=== PATIENT | male | born 1965 | race Caucasian/White ===

== ENCOUNTER 2016-08-29 01:06 | Emergency (ER) | payer BC ==
--- NOTE | ~2016-08-29 | ER ---
[facility] 51 [facility] [address] ROOM: [place] [address] LOCATION: [facility] ADMIT DATE: 08/29/2016 ER/Outpatient Report DISCHARGE DATE: 08/29/2016 FAMILY PHYSICIAN: PHYSICIAN, NO ATTENDING PHYSICIAN: Jorge Alberto Patterson TIME OF ARRIVAL: 01:06. TIME OF EVALUATION: 01:10. CHIEF COMPLAINT: Right flank pain. HISTORY OF PRESENT ILLNESS: The patient is a 51-year-old male, who presented to the Emergency Department today with chief complaint of right flank pain. He reports that this started about 24 hours prior to arrival. He is having some nausea. No vomiting. No fevers or chills. No urinary frequency, urgency, or painful urination. No blood in his urine. No blood in the stool. No dark tarry stools. It is in the right flank, and radiates up to the right upper quadrant. Pain is currently 4/10 in severity and it is sharp. PAST MEDICAL HISTORY: 1. Reflux. 2. Kidney stones. PAST SURGICAL HISTORY: 1. Knee surgery. 2. Lithotripsy. SOCIAL HISTORY: The patient smokes a pack per day. He drinks alcohol socially. He denies illicit drug use. ALLERGIES: NO KNOWN DRUG ALLERGIES. MEDICATIONS: Please see list. PRIMARY CARE DOCTOR: In [place]. PATIENT'S NAME: JATINDER HANNON [facility] AGE: 51 Y [address] ROOM: [place] [address] LOCATION: [facility] ADMIT DATE: 08/29/2016 ER/Outpatient Report DISCHARGE DATE: 08/29/2016 FAMILY PHYSICIAN: PHYSICIAN, NO ATTENDING PHYSICIAN: Jorge Alberto Patterson REVIEW OF SYSTEMS: All the systems are reviewed by myself, and are negative with the exception of those discussed in HPI and past medical history. PHYSICAL EXAMINATION: VITAL SIGNS: Weight is 117 kg, blood pressure is 157/84, pulse is 77, respiratory rate is 16, temperature is 95.6, and oxygen saturation is 96% on room air. GENERAL: The patient is a 51-year-old male, who appears stated age, in mild- to-moderate acute distress. HEAD: Normocephalic and atraumatic. NECK: Supple. There is no nuchal rigidity. CARDIOVASCULAR: Regular rate and rhythm. No murmurs, rubs, or gallops. LUNGS: Clear to auscultation bilaterally. No wheezes, rales, or rhonchi. ABDOMEN: Soft. Mild right upper quadrant tenderness to palpation. Mild right CVA tenderness to palpation. No rebound, rigidity, or guarding. Positive bowel sounds. MUSCULOSKELETAL: The patient moves all four extremities. SKIN: Warm and dry. There are no rashes or lesions noted. LABORATORY DATA AND X-RAYS: Urinalysis is unremarkable except for 25 of leukocyte esterase, 15 protein, 15 ketones, 25 blood, and 0 to 2 wbc's and rbc's. CBC is unremarkable. CMP is unremarkable. LFTs are normal. CT scan of the abdomen and pelvis without IV contrast was obtained. It does show evidence of non-obstructive left-sided nephrolithiasis. There was also cholelithiasis noted. IMPRESSION: 1. Cholelithiasis with suspected biliary colic. 2. Nephrolithiasis. 3. Renal cyst. 4. Initial visit. EMERGENCY DEPARTMENT COURSE: The patient was brought back to the Examination Room. Seen and evaluated by myself. IV is established. Laboratory analysis and imaging were obtained as described above. The patient was given a liter of normal saline, 4 mg of Zofran, 5 mg of morphine, and 30 mg of Toradol, all IV. This has resulted in significant improvement of the patient's symptoms. A bedside ultrasound was performed by myself. There is visualized cholelithiasis noted. There is no evidence of gallbladder wall thickening. There was no pericholecystic fluid noted. I have discussed the results with the patient and his girlfriend, who is at the bedside. I have written a prescription for Zofran and [place] for PATIENT'S NAME: JATINDER HANNON [facility] AGE: 51 Y [address] ROOM: [place], [place] [address] LOCATION: [facility] ADMIT DATE: 08/29/2016 ER/Outpatient Report DISCHARGE DATE: 08/29/2016 FAMILY PHYSICIAN: PHYSICIAN, NO ATTENDING PHYSICIAN: Jorge Alberto Patterson macdoel. I have asked he follows up with the [facility] General Surgery team in two to three days. I have discussed return to care instructions including worsening symptoms or any other concerns, to return to the Emergency Department as soon as possible. The patient was agreeable without further questions. DISPOSITION: The patient was discharged home in good condition. DO BRENDA MULTANI/ruddy /[id number] d: 08/29/16 0538 t: 09/05/16 1019, OUTPATIENT REPORT
[2016-08-29 01:25] LABS: BILIRUBIN URINE NEGATIVE (NEGATIVE); BLOOD URINE 25 /UL (NEGATIVE); COLOR URINE YELLOW (YELLOW); GLUCOSE URINE NEGATIVE (NEGATIVE); KETONE URINE 15 mg/dL (NEGATIVE); LEUKOCYTES URINE 25 /UL (NEGATIVE); NITRITE URINE NEGATIVE (NEGATIVE); PROTEIN URINE 15 mg/dL (NEGATIVE); SPEC GRAVITY URINE 1.025 (1.003-1.035); TURBIDITY URINE CLEAR (CLEAR); UROBILINOGEN URINE NORMAL (NORMAL)
[2016-08-29 01:30] LABS: BASOPHIL % 0.4 %; EOSINOPHIL # 0.1 K/uL (0.0-0.5); EOSINOPHIL % 1.6 %; HEMATOCRIT 45.1 % (37.0-53.0); HEMOGLOBIN 15.2 g/dL (12.0-17.0); IMMATURE GRANULOCYTE % 0.5 %; LYMPHOCYTE # 2.2 K/uL (0.8-4.0); LYMPHOCYTE % 26.8 %; MCH 30.3 pg (27.0-34.0); MCHC 33.7 gm/dL (32.0-36.5); MONOCYTE # 0.6 K/uL (0.0-1.0); MONOCYTE % 7.7 %; MPV 9.1 fl (9.4-12.4); NEUTROPHIL # (ANC) 5.3 K/uL (1.4-9.0); NRBC % 0 /100WBC (0-0.00); PLATELET COUNT 243 K/uL (150-450); RBC 5.01 M/uL (4.00-6.00); RDW-CV 13.1 % (11.9-14.6); WBC 8.3 K/uL (4.0-11.0)
[2016-08-29 01:33] LABS: BACTERIA URINE NEGATIVE (NEGATIVE); EPITHELIAL URINE 0-2 #/HPF (NEGATIVE); RBC URINE 0-2 #/HPF (NEGATIVE); WBC URINE 0-2 #/HPF (NEGATIVE)
[2016-08-29 01:47] LABS: ANION GAP 10.8 (10.0-19.0); CALCIUM 8.8 mg/dL (8.5-10.5); CREATININE 1.3 mg/dL (0.6-1.3); POTASSIUM 3.8 mMol/L (3.7-5.1); TOTAL BILIRUBIN 0.8 mg/dL (0.0-1.5); TOTAL PROTEIN 8.1 g/dL (6.0-8.4)
[2016-08-30] MEDS ORDERED: PRILOSEC OTC20 MG PO (14:41)
[2016-08-30] MEDS ORDERED: NORCO 5-325 TA1 EACH PO (17:45)
== END 2016-08-29 02:27 | disposition disaster alternative care site (69) ==
LOC: GMED 01:06
PROVIDERS: Emergency Medicine
DX: K80.20 Calculus of gallbladder without cholecystitis without obstruction (principal); N20.0 Calculus of kidney; N28.1 Cyst of kidney, acquired; F17.210 Nicotine dependence, cigarettes, uncomplicated
CPT/HCPCS: J1885; J2270; J2405; J7030

== ENCOUNTER → 2016-08-30 | Day surgery (SDC) | payer BC ==
[~2016-08-30] VITALS: Ht 180.3 cm; Wt 114.1 kg
[~2016-08-30] MED LIST: NORCO 5-325 TA1 EACH PO; PRILOSEC OTC20 MG PO
--- NOTE | ~2016-08-30 | OR ---
PATIENT'S NAME: JATINDER HANNON [facility] AGE: 51 Y [address] ROOM: [place] [address] [place] [facility] [place] DATE: 08/30/2016 OR/Procedure Report DISCHARGE DATE: FAMILY PHYSICIAN: PHYSICIAN, NO ATTENDING PHYSICIAN: Jatinder Evangelista SURGEON: Jatinder Evangelista MD ARCHITECTURE TECHNICIAN: Rick Woods PA-C. DATE OF PROCEDURE: 08/30/2016 PREOPERATIVE DIAGNOSES: Cholelithiasis with chronic cholecystitis. POSTOPERATIVE DIAGNOSES: Cholelithiasis with chronic cholecystitis. PROCEDURE PERFORMED: Laparoscopic cholecystectomy. ANESTHESIA: General endotracheal. ESTIMATED BLOOD LOSS: Less than 10 mL. SPECIMEN: Gallbladder. REASON FOR PROCEDURE: The patient is a 51-year-old gentleman, who presented to the Emergency Room several days ago with right-sided abdominal pain. A CT scan showed cholelithiasis, but there was no evidence of cholecystitis, and ultrasound confirmed this diagnosis. His white count and liver function tests were normal. He has continued to have pain and nausea ever since to now and a markedly decreased appetite. We discussed the risks and benefits of surgery. With the ongoing symptoms, and his inability to eat, we decided to proceed with cholecystectomy as soon as possible. FINDINGS: The patient had some chronic wall thickening. He had several small stones within the gallbladder. The cystic duct was normal in size. PROCEDURE IN DETAIL: The patient was taken to the Operating Suite and placed in the supine position. After general endotracheal anesthesia was obtained, the abdomen was prepped with ChloraPrep and sterilely draped. Marcaine was infiltrated into the incision sites. A 2-cm transverse infraumbilical incision was made. The fascia was grasped and elevated, and a Veress needle was used to obtain a pneumoperitoneum. An 11-mm bladeless trocar was then passed across the abdominal wall. Next, three 5-mm subcostal trocars were all placed under direct visualization. The gallbladder was noted to be slightly distended and thick-walled, but not overly tense. We were able to grasp and elevate it. A second grasper was placed on the infundibulum. We carefully dissected through the neck area of PATIENT'S NAME: JATINDER HANNON [facility] AGE: 51 Y [address] ROOM: [place], [place] [address] [place] [facility] [place]: 08/30/2016 OR/Procedure Report DISCHARGE DATE: FAMILY PHYSICIAN: PHYSICIAN, ALONSO ATTENDING PHYSICIAN: Jatinder Evangelista the gallbladder. The cystic duct was skeletonized up to the gallbladder wall. It was then stapled proximally and distally and divided with the scissors. The cystic artery was also stapled and divided with cautery. The gallbladder was then mobilized free of the liver bed. Once fully mobilized, the gallbladder was removed from the umbilicus. The right upper quadrant was irrigated and all irrigation was removed. There were no signs of any ongoing bleeding or bile leak. The surgical clips were in place. The abdomen was scanned. No other obvious abnormalities were seen. The trocars were all withdrawn and pneumoperitoneum was evacuated. WOUND CLOSURE: The fascia at the umbilicus was closed with a Vicryl suture. The skin incisions were closed with subcuticular Monocryl. Benzoin, Steri- Strips, and gauze dressings were applied. POST-PROCEDURE PLAN: The patient will be sent to Recovery and discharged home when awake and alert. He is to avoid any heavy lifting. We will see him in the office in one to two weeks for a recheck. He was given a prescription for [place] for pain control. MD FRED MORRIS/jasonl /[id number] d: 08/30/162129 t: 08/31/16 1007, OPERATIVE SUMMARY
== END ==
LOC: GPOC 13:30 → GSDC 14:26
PROC: 0FT44ZZ Resection of Gallbladder, Percutaneous Endoscopic Approach (ICD-10-PCS; principal; 2016-08-30)
DX: K80.10 Calculus of gallbladder with chronic cholecystitis without obstruction (principal); F17.210 Nicotine dependence, cigarettes, uncomplicated; K21.9 Gastro-esophageal reflux disease without esophagitis; Z87.442 Personal history of urinary calculi; Z98.890 Other specified postprocedural states; Z79.899 Other long term (current) drug therapy
CPT/HCPCS: J0694; J1170; J1885; J3010; J7030